=== PATIENT | female | born 1990 | race African-American/Black ===

== ENCOUNTER 2021-08-29 15:18 | Emergency (ER) | payer OTHER ==
[~2021-08-29] VITALS: Ht 157.5 cm; Wt 56.7 kg
[2021-08-29 15:40] VITALS: BP 127/85
[2021-08-29 17:20] LABS: BASOPHILS % (AUTO) 0.7 % (0.0-2.0); EOSINOPHILS % (AUTO) 0.1 % (0.0-4.0); HEMATOCRIT 39.3 % (36-48); LYMPHOCYTES # (AUTO) 1.8 K/uL (2.5-16.5); LYMPHOCYTES % (AUTO) 41.2 % (20.5-51.1); MEAN CORPUSCULAR HEMOGLOBIN 27 pg (27-31); MEAN CORPUSCULAR HGB CONC 33 g/dL (33-37); MEAN CORPUSCULAR VOLUME 81.8 fL (80-94); MONOCYTES # (AUTO) 0.3 K/uL (0.8-1.0); MONOCYTES % (AUTO) 5.6 % (1.7-9.3); NEUTROPHILS # (AUTO) 2.4 K/uL (1.8-7.7); NEUTROPHILS % (AUTO) 52.4 % (42.2-75.2); PLATELET COUNT (AUTO) 337 K/uL (140-450); RED BLOOD CELL COUNT(AUTO) 4.81 MIL/uL (4.20-5.40); RED CELL DISTRIBUTION WIDTH 13.8 % (11.6-13.7); WHITE BLOOD COUNT (AUTO) 4.5 K/uL (4.8-10.8)
[2021-08-29 18:09] LABS: APPEARANCE,URINE CLEAR (CLEAR); BILIRUBIN,URINE NEGATIVE (NEGATIVE); BLOOD, URINE TRACE-I (NEGATIVE); COLOR,URINE YELLOW (YELLOW); LEUKOCYTE ESTERASE ,URINE NEGATIVE (NEGATIVE); NITRITE, URINE NEGATIVE (NEGATIVE); UGLUCOSE NEGATIVE (NEGATIVE)
[2021-08-29] MEDS ORDERED: ACET-10509 PO (18:21)
--- NOTE | 2021-08-29 18:30 | NUR ---
PT SEEN AND D/C BY DR ARMSTRONG. NO NURSING INTERVENTIONS PROVIDED
--- NOTE | 2021-08-29 18:31 | NUR ---
Patient discharged with v/s stable. Written and verbal after care instructions ABOUT DYSFUNCTIONAL UTERINE BLEEDING given and explained. Patient alert, oriented and verbalized understanding of instructions. Ambulatory with steady gait. All questions addressed prior to discharge. ID band removed. Patient advised to follow up with PMD. Rx of TYLENOL EXTRA STRENGTH given. Patient educated on indication of medication including possible reaction and side effects. Opportunity to ask questions provided and answered.
[2021-08-29 18:32] LABS: RBC,URINE 0-5 /HPF (0-5); WBC,URINE 0-5 /HPF (0-5)
== END 2021-08-29 18:31 | disposition home or self-care (01) ==
LOC: MED 15:18
DX: N93.8 Other specified abnormal uterine and vaginal bleeding (principal); Z79.899 Other long term (current) drug therapy; Z98.890 Other specified postprocedural states
CPT/HCPCS: 36415; 76817; 81001; 81025; 84702; 85025; 86900; 86901; 99284; Q0092

== ENCOUNTER 2022-03-13 09:37 | Emergency (ER) | payer OTHER ==
[~2022-03-13] VITALS: Ht 157.5 cm; Wt 57.6 kg
[~2022-03-13 09:37] MED LIST: ACET-10509 PO
[2022-03-13 09:41] VITALS: BP 123/76
--- NOTE | 2022-03-13 10:10 | NUR ---
Female [employer] Manager accompanied female patient for Pelvic Exam.
[2022-03-13 11:08] LABS: BASOPHILS % (AUTO) 0.3 % (0.0-2.0); EOSINOPHILS % (AUTO) 0.6 % (0.0-4.0); HEMOGLOBIN 13.5 g/dL (12.0-16.0); LYMPHOCYTES # (AUTO) 1.8 K/uL (2.5-16.5); LYMPHOCYTES % (AUTO) 28.4 % (20.5-51.1); MEAN CORPUSCULAR HEMOGLOBIN 27 pg (27-31); MEAN CORPUSCULAR HGB CONC 33 g/dL (33-37); MEAN CORPUSCULAR VOLUME 82.6 fL (80-94); MONOCYTES # (AUTO) 0.3 K/uL (0.8-1.0); MONOCYTES % (AUTO) 4.7 % (1.7-9.3); NEUTROPHILS # (AUTO) 4.2 K/uL (1.8-7.7); PLATELET COUNT (AUTO) 406 K/uL (140-450); RED BLOOD CELL COUNT(AUTO) 4.97 MIL/uL (4.20-5.40); RED CELL DISTRIBUTION WIDTH 14.3 % (11.6-13.7); WHITE BLOOD COUNT (AUTO) 6.4 K/uL (4.8-10.8)
--- NOTE | 2022-03-13 11:10 | NUR ---
WET MOUNT COLLECTED AND SENT TO LAB
--- NOTE | 2022-03-13 11:15 | NUR ---
32YR OLD FEMALE BIB SELF C/O VAG BLEED X1 DAY. PT STATES HAD UNPROTECTED SEX BEGINNING OF JANUARY. PREG TEST NEG. STATES SHE HAS "A FOUL ODER" SMALL AMOUNT OF VAG DISCHARGE. PT IS A&OX4. DENIES ANY PAIN . DENIES CP OR SOB. PEVIC EXAM COMPLETED BY DR SALEEM. NKDA NO HX TO NOTE
[2022-03-13] MEDS ORDERED: DOXY-690 PO (11:20)
[2022-03-13 11:27] LABS: ANION GAP 12.7 (8-16); CARBON DIOXIDE 25.4 mmol/L (21-32); CREATININE 0.6 mg/dL (0.6-1.3); POTASSIUM 4.1 mmol/L (3.5-5.1); TOTAL BILIRUBIN 0.6 mg/dL (0.0-1.0)
[2022-03-13] MEDS ORDERED: LIDOCAINE MPF 1% 5 ML ONE (11:30)
[2022-03-13] MEDS ORDERED: cefTRIAXone 500 MG VIAL ONE (11:30)
[2022-03-13] MEDS: cefTRIAXone 500 MG in LIDOCAINE MPF 1% 1 ML IM ONE (11:35)
--- NOTE | 2022-03-13 12:02 | NUR ---
Patient discharged with v/s stable. Written and verbal after care instructions ABOUT ABNORMAL UTERINE BLEEDING given and explained. Patient alert, oriented and verbalized understanding of instructions. Ambulatory with steady gait. All questions addressed prior to discharge. ID band removed. Patient advised to follow up with PMD. Rx of VIBRAMYCIN given. Patient educated on indication of medication including possible reaction and side effects. Opportunity to ask questions provided and answered.
== END 2022-03-13 12:02 | disposition home or self-care (01) ==
LOC: MED 09:37
DX: N93.9 Abnormal uterine and vaginal bleeding, unspecified (principal)
CPT/HCPCS: 36415; 80053; 81002; 81025; 85025; 87210; 87491; 96372; 99283; J0696; J2001